=== PATIENT | male | born 1950 | race Caucasian/White ===

== ENCOUNTER 2017-11-06 08:25 | Day surgery (SDC) | payer MEDICARE, BC ==
[~2017-11-06 08:25] MED LIST: ALBU8.5H8 IH; EMPA10TA PO; IRBE300T19 PO; SITA100T11 PO; ZOLP10TA PO
[2017-11-06] MEDS ORDERED: ATEN1TAB3 PO (09:28)
[2017-11-06] MEDS ORDERED: ALBU0.63 NEB (09:28)
[2017-11-06] MEDS ORDERED: IRBE300T19 PO (09:28)
[2017-11-06] MEDS ORDERED: [UNRECOGNIZED DRUG - CODE] (09:28)
[2017-11-06] MEDS ORDERED: METF500T4 PO (09:28)
[2017-11-06] MEDS ORDERED: EMPA10TA PO (09:28)
[2017-11-06] MEDS ORDERED: GABA-532 PO (09:28)
[2017-11-06] MEDS ORDERED: LIDOcaine 2% 5ml jelly ONE (09:54)
== END 2017-11-06 11:03 | disposition home or self-care (01) ==
LOC: WOUND CARE 08:25
PROVIDERS: ATTEND Surgery
DX: E11.622 Type 2 diabetes mellitus with other skin ulcer (principal); L97.821 Non-pressure chronic ulcer of other part of left lower leg limited to breakdown of skin; L97.811 Non-pressure chronic ulcer of other part of right lower leg limited to breakdown of skin; L97.221 Non-pressure chronic ulcer of left calf limited to breakdown of skin; I87.2 Venous insufficiency (chronic) (peripheral); I11.0 Hypertensive heart disease with heart failure; I50.33 Acute on chronic diastolic (congestive) heart failure; E78.5 Hyperlipidemia, unspecified; E66.01 Morbid (severe) obesity due to excess calories; G47.33 Obstructive sleep apnea (adult) (pediatric); E11.42 Type 2 diabetes mellitus with diabetic polyneuropathy; M19.90 Unspecified osteoarthritis, unspecified site; F10.20 Alcohol dependence, uncomplicated; F17.210 Nicotine dependence, cigarettes, uncomplicated; Z68.37 Body mass index [BMI] 37.0-37.9, adult; Z79.899 Other long term (current) drug therapy
CPT/HCPCS: 36415; 36416; 82948; 83036; 97597; A6021; A6223; A6441

== ENCOUNTER 2017-11-10 09:16 | Day surgery (SDC) | payer MEDICARE, BC ==
[~2017-11-10 09:16] MED LIST changes: +ALBU0.63 NEB; +ATEN1TAB3 PO; +GABA-532 PO; +METF500T4 PO; +[UNRECOGNIZED DRUG - CODE]
[2017-11-10] MEDS ORDERED: LIDOcaine 2% 5ml jelly ONE (10:37)
== END 2017-11-10 11:28 | disposition home or self-care (01) ==
LOC: WOUND CARE 09:16
PROVIDERS: ATTEND Surgery
DX: E11.622 Type 2 diabetes mellitus with other skin ulcer (principal); L97.821 Non-pressure chronic ulcer of other part of left lower leg limited to breakdown of skin; L97.811 Non-pressure chronic ulcer of other part of right lower leg limited to breakdown of skin; L97.221 Non-pressure chronic ulcer of left calf limited to breakdown of skin; I87.2 Venous insufficiency (chronic) (peripheral); I11.0 Hypertensive heart disease with heart failure; I50.33 Acute on chronic diastolic (congestive) heart failure; E78.5 Hyperlipidemia, unspecified; E66.01 Morbid (severe) obesity due to excess calories; G47.33 Obstructive sleep apnea (adult) (pediatric); E11.42 Type 2 diabetes mellitus with diabetic polyneuropathy; M19.90 Unspecified osteoarthritis, unspecified site; F10.20 Alcohol dependence, uncomplicated; F17.210 Nicotine dependence, cigarettes, uncomplicated; Z68.37 Body mass index [BMI] 37.0-37.9, adult; Z79.899 Other long term (current) drug therapy
CPT/HCPCS: 36416; 82948; 93970; 97597; A6021; A6206; A6441

== ENCOUNTER 2017-11-17 09:20 | Day surgery (SDC) | payer MEDICARE, BC ==
[2017-11-17] MEDS ORDERED: LIDOcaine 2% 5ml jelly ONE (09:55)
== END 2017-11-17 10:50 | disposition home or self-care (01) ==
LOC: WOUND CARE 09:20
PROVIDERS: ATTEND Surgery
DX: E11.622 Type 2 diabetes mellitus with other skin ulcer (principal); L97.821 Non-pressure chronic ulcer of other part of left lower leg limited to breakdown of skin; L97.811 Non-pressure chronic ulcer of other part of right lower leg limited to breakdown of skin; L97.221 Non-pressure chronic ulcer of left calf limited to breakdown of skin; I87.2 Venous insufficiency (chronic) (peripheral); I11.0 Hypertensive heart disease with heart failure; I50.33 Acute on chronic diastolic (congestive) heart failure; E78.5 Hyperlipidemia, unspecified; E66.01 Morbid (severe) obesity due to excess calories; G47.33 Obstructive sleep apnea (adult) (pediatric); E11.42 Type 2 diabetes mellitus with diabetic polyneuropathy; M19.90 Unspecified osteoarthritis, unspecified site; F10.20 Alcohol dependence, uncomplicated; F17.210 Nicotine dependence, cigarettes, uncomplicated; Z68.37 Body mass index [BMI] 37.0-37.9, adult; Z79.899 Other long term (current) drug therapy
CPT/HCPCS: 36416; 82948; 97597; A6021; A6206; A6441

== ENCOUNTER 2017-11-24 09:17 | Day surgery (SDC) | payer MEDICARE, BC ==
[2017-11-24] MEDS ORDERED: LIDOcaine 2% 5ml jelly ONE (09:36)
== END 2017-11-24 10:35 | disposition home or self-care (01) ==
LOC: WOUND CARE 09:17
PROVIDERS: ATTEND Surgery
DX: E11.622 Type 2 diabetes mellitus with other skin ulcer (principal); L97.221 Non-pressure chronic ulcer of left calf limited to breakdown of skin; L97.821 Non-pressure chronic ulcer of other part of left lower leg limited to breakdown of skin; L97.811 Non-pressure chronic ulcer of other part of right lower leg limited to breakdown of skin; I87.2 Venous insufficiency (chronic) (peripheral); I11.0 Hypertensive heart disease with heart failure; I50.33 Acute on chronic diastolic (congestive) heart failure; E78.5 Hyperlipidemia, unspecified; E66.01 Morbid (severe) obesity due to excess calories; G47.33 Obstructive sleep apnea (adult) (pediatric); E11.42 Type 2 diabetes mellitus with diabetic polyneuropathy; M19.90 Unspecified osteoarthritis, unspecified site; F10.20 Alcohol dependence, uncomplicated; F17.210 Nicotine dependence, cigarettes, uncomplicated; Z68.37 Body mass index [BMI] 37.0-37.9, adult; Z79.899 Other long term (current) drug therapy
CPT/HCPCS: 29581; 36416; 82948; 97597; A6021; A6206; A6441

== ENCOUNTER 2017-12-01 09:15 | Outpatient (CLI) | payer MEDICARE, BC | END 2017-12-01 11:15 | disposition home or self-care (01) | LOC: WOUND CARE 09:15 → EDSTATUS 09:30 → WOUND CARE 11:15 | PROVIDERS: ATTEND Surgery | DX: E11.622 Type 2 diabetes mellitus with other skin ulcer (principal); L97.821 Non-pressure chronic ulcer of other part of left lower leg limited to breakdown of skin; L97.811 Non-pressure chronic ulcer of other part of right lower leg limited to breakdown of skin; L97.221 Non-pressure chronic ulcer of left calf limited to breakdown of skin; I83.022 Varicose veins of left lower extremity with ulcer of calf; I83.218 Varicose veins of right lower extremity with both ulcer of other part of lower extremity and inflammation; I11.0 Hypertensive heart disease with heart failure; I50.33 Acute on chronic diastolic (congestive) heart failure; E66.01 Morbid (severe) obesity due to excess calories; G47.33 Obstructive sleep apnea (adult) (pediatric); E11.42 Type 2 diabetes mellitus with diabetic polyneuropathy; M19.90 Unspecified osteoarthritis, unspecified site; F17.210 Nicotine dependence, cigarettes, uncomplicated; F10.20 Alcohol dependence, uncomplicated; Z68.37 Body mass index [BMI] 37.0-37.9, adult; Z79.899 Other long term (current) drug therapy | CPT/HCPCS: 29581; 36416; 82948; A6441 ==

== ENCOUNTER 2017-12-15 08:26 | Outpatient (CLI) | payer MEDICARE, BC ==
[2017-12-15] MEDS ORDERED: silver sulfadiazine cream 50gm TP ONE (10:43)
== END 2017-12-15 11:30 | disposition home or self-care (01) ==
LOC: WOUND CARE 08:26 → EDSTATUS 09:30 → WOUND CARE 11:30
PROVIDERS: ATTEND Surgery
DX: E11.622 Type 2 diabetes mellitus with other skin ulcer (principal); L97.821 Non-pressure chronic ulcer of other part of left lower leg limited to breakdown of skin; L97.811 Non-pressure chronic ulcer of other part of right lower leg limited to breakdown of skin; L97.221 Non-pressure chronic ulcer of left calf limited to breakdown of skin; I83.022 Varicose veins of left lower extremity with ulcer of calf; I83.218 Varicose veins of right lower extremity with both ulcer of other part of lower extremity and inflammation; I11.0 Hypertensive heart disease with heart failure; I50.33 Acute on chronic diastolic (congestive) heart failure; E66.01 Morbid (severe) obesity due to excess calories; G47.33 Obstructive sleep apnea (adult) (pediatric); E11.42 Type 2 diabetes mellitus with diabetic polyneuropathy; M19.90 Unspecified osteoarthritis, unspecified site; F17.210 Nicotine dependence, cigarettes, uncomplicated; F10.20 Alcohol dependence, uncomplicated; Z68.37 Body mass index [BMI] 37.0-37.9, adult; Z79.899 Other long term (current) drug therapy
CPT/HCPCS: 29581; 36416; 82948; A6441

== ENCOUNTER 2017-12-26 08:30 | Outpatient (CLI) | payer MEDICARE, BC | END 2017-12-26 10:07 | disposition home or self-care (01) | LOC: WOUND CARE 08:30 → EDSTATUS 08:30 → WOUND CARE 10:07 | PROVIDERS: ATTEND Surgery | DX: E11.622 Type 2 diabetes mellitus with other skin ulcer (principal); L97.821 Non-pressure chronic ulcer of other part of left lower leg limited to breakdown of skin; L97.811 Non-pressure chronic ulcer of other part of right lower leg limited to breakdown of skin; L97.221 Non-pressure chronic ulcer of left calf limited to breakdown of skin; I83.022 Varicose veins of left lower extremity with ulcer of calf; I83.218 Varicose veins of right lower extremity with both ulcer of other part of lower extremity and inflammation; I11.0 Hypertensive heart disease with heart failure; I50.33 Acute on chronic diastolic (congestive) heart failure; E78.5 Hyperlipidemia, unspecified; E66.01 Morbid (severe) obesity due to excess calories; G47.33 Obstructive sleep apnea (adult) (pediatric); E11.42 Type 2 diabetes mellitus with diabetic polyneuropathy; M19.90 Unspecified osteoarthritis, unspecified site; F17.210 Nicotine dependence, cigarettes, uncomplicated; F10.20 Alcohol dependence, uncomplicated; Z68.37 Body mass index [BMI] 37.0-37.9, adult; Z79.899 Other long term (current) drug therapy | CPT/HCPCS: 36416; 82948; 99215 ==

== ENCOUNTER 2018-11-11 16:06 | Emergency (ER) | payer MEDICARE, BC ==
[~2018-11-11] VITALS: Ht 172.7 cm; Wt 113.6 kg
[~2018-11-11 16:06] MED LIST changes: +METF-436 PO; -METF500T4 PO
[2018-11-11 17:09] LABS: BASOPHILS # (AUTO) 0.1 X10'3 (0-0.2); BASOPHILS % (AUTO) 0.6 % (0-1); EOSINOPHILS # (AUTO) 0.1 X10'3 (0-0.9); EOSINOPHILS % (AUTO) 1.1 % (0-6); HEMATOCRIT 52.3 % (42.0-52.0); HEMOGLOBIN 17.6 g/dl (14.0-17.9); LYMPHOCYTES # (AUTO) 1.7 X10'3 (1.1-4.8); LYMPHOCYTES % (AUTO) 13.4 % (21-51); MEAN CORPUSCULAR HEMOGLOBIN 33.7 PG (27.0-31.0); MEAN CORPUSCULAR HGB CONC 33.7 g/dL (33.0-36.5); MEAN CORPUSCULAR VOLUME 99.8 FL (78-98); MONOCYTES # (AUTO) 1.1 X10'3 (0-0.9); MONOCYTES % (AUTO) 8.7 % (2-12); NEUTROPHILS # (AUTO) 9.5 X10'3 (1.8-7.7); NEUTROPHILS % (AUTO) 76.2 % (42-75); PLATELET COUNT 212 X10'3 (140-440); RED BLOOD COUNT 5.24 X10'6 (4.70-6.10); RED CELL DISTRIBUTION WIDTH 15.4 % (11.5-14.5); WHITE BLOOD COUNT 12.5 X10'3 (4.5-11.0)
[2018-11-11 17:41] LABS: ALANINE AMINOTRANSFERASE 24 U/L (12-78); ALBUMIN 3.3 G/DL (3.4-5.0); ALBUMIN/GLOBULIN RATIO 0.9 (1.1-1.5); ALKALINE PHOSPHATASE 95 IU/L (46-116); ANION GAP 8 (8-16); ASPARTATE AMINO TRANSFERASE 17 U/L (10-37); BILIRUBIN,TOTAL 0.4 MG/DL (0.1-1.0); BLOOD UREA NITROGEN 25 MG/DL (7-18); BUN/CREATININE RATIO 27.8 (5.4-32.0); CALCIUM 9.1 MG/DL (8.5-10.1); CHLORIDE 103 MMOL/L (99-107); GLUCOSE 141 MG/DL (70-104); LIPASE 188 U/L (73-393); POTASSIUM 4.7 MMOL/L (3.5-5.1); SODIUM 140 MMOL/L (135-145); TOTAL CARBON DIOXIDE 29.5 MMOL/L (24-32); TOTAL PROTEIN 6.9 G/DL (6.4-8.2); eGFR 84 ML/MIN
[2018-11-11 17:54] LABS: CLARITY,URINE SLIGHTLY CLOUDY (Clear); COLOR,URINE YELLOW (Yellow); GLUCOSE, URINE 250 mg/dl (Neg); KETONES,URINE NEGATIVE (Neg); LEUKOCYTE ESTERASE ,URINE LARGE (Neg); NITRITES, URINE NEGATIVE (Neg); OCCULT BLOOD,URINE TRACE-INTACT (Neg); PROTEIN,URINE NEGATIVE (Neg); UROBILINOGEN,URINE 0.2 E.U/dL (0.2-1.0)
[2018-11-11 17:57] LABS: UA COLLECTION TYPE CLN CATCH MIDSTREAM
[2018-11-11 18:00] VITALS: BP 135/71
[2018-11-11 18:01] LABS: MUCUS STRANDS FEW /LPF (Neg); SQUAMOUS EPITHELIAL CELL,UR MODERATE /LPF (FEW)
[2018-11-11 18:02] LABS: WBC,URINE 30-50 /HPF (0-4)
[2018-11-11 18:04] LABS: YEAST MANY /HPF (NEGATIVE)
[2018-11-11 18:05] LABS: BACTERIA,URINE FEW /HPF (Neg); WBC CLUMPS,URINE FEW /HPF (NEGATIVE)
[2018-11-11 18:20] LABS: OCCULT BLOOD STOOL POSITIVE (Neg)
[2018-11-11] MEDS ORDERED: amox tr/potassium clavulanate 875/125mg TAB PO ONE (18:45)
[2018-11-11] MEDS ORDERED: AMOX-422 PO (19:02)
== END 2018-11-11 19:28 | disposition home or self-care (01) ==
LOC: ER 16:07
DX: K62.5 Hemorrhage of anus and rectum (principal); N39.0 Urinary tract infection, site not specified; J44.9 Chronic obstructive pulmonary disease, unspecified; E11.9 Type 2 diabetes mellitus without complications; I87.8 Other specified disorders of veins; Z79.2 Long term (current) use of antibiotics; Z79.899 Other long term (current) drug therapy
CPT/HCPCS: 36415; 74176; 80053; 81001; 82272; 83690; 84145; 85025; 87088; 99284

== ENCOUNTER 2019-05-03 09:02 | Emergency (ER) | payer MEDICARE, BC ==
[~2019-05-03] VITALS: Ht 175.3 cm; Wt 104.0 kg
[~2019-05-03 09:02] MED LIST changes: -ALBU0.63 NEB; +ALOG25TA2 PO; -ATEN1TAB3 PO; +ATEN25TA PO; +EPHE1TAB PO; +FLO0.4C PO; +FLUC200T9; +FOLI1TAB16 PO; +FURO40TA4 PO; +HYDR25TA4 PO; +IPRA3AMP9 IH; +IRBE150T51 PO; -IRBE300T19 PO; +LOSA25TA96 PO; -METF-436 PO; +METO50TA7 PO; +NITR100C11 PO; +ROSU10TA2 PO; -SITA100T11 PO; +TERB250T4 PO; -ZOLP10TA PO; +ZOLP10TA5 PO; -[UNRECOGNIZED DRUG - CODE]
[2019-05-03] MEDS ORDERED: orphenadrine citrate 60mg/2ml inj. IM ONE (10:35)
[2019-05-03 10:51] VITALS: BP 148/86
[2019-05-03] MEDS ORDERED: FLUC100T8 PO (22:55)
[2019-05-03] MEDS ORDERED: TIOT4MIS3 INH (22:55)
[2019-05-03] MEDS ORDERED: CEPH-572 PO (22:55)
== END 2019-05-03 10:53 | disposition home or self-care (01) ==
LOC: ER 09:03
DX: S39.012A Strain of muscle, fascia and tendon of lower back, initial encounter (principal); E78.00 Pure hypercholesterolemia, unspecified; J44.9 Chronic obstructive pulmonary disease, unspecified; I13.0 Hypertensive heart and chronic kidney disease with heart failure and stage 1 through stage 4 chronic kidney disease, or unspecified chronic kidney disease; E11.22 Type 2 diabetes mellitus with diabetic chronic kidney disease; N18.9 Chronic kidney disease, unspecified; I50.9 Heart failure, unspecified; F17.200 Nicotine dependence, unspecified, uncomplicated; Z95.0 Presence of cardiac pacemaker; Z79.899 Other long term (current) drug therapy; W18.39XA Other fall on same level, initial encounter; Y93.89 Activity, other specified; Y92.89 Other specified places as the place of occurrence of the external cause; Y99.8 Other external cause status
CPT/HCPCS: 96372; 99284; J2360

== ENCOUNTER 2019-05-03 19:46 | Emergency (ER) | payer MEDICARE, BC ==
[~2019-05-03] VITALS: Ht 175.3 cm; Wt 230.0 kg
--- NOTE | 2019-05-03 20:41 | NUR ---
PT GOING TO CT
[2019-05-03 21:18] LABS: BASOPHILS # (AUTO) 0.1 X10'3 (0-0.2); BASOPHILS % (AUTO) 0.9 % (0-1); EOSINOPHILS # (AUTO) 0.1 X10'3 (0-0.9); EOSINOPHILS % (AUTO) 1.5 % (0-6); HEMATOCRIT 40.1 % (42.0-52.0); HEMOGLOBIN 13.5 g/dl (14.0-17.9); LYMPHOCYTES # (AUTO) 1.6 X10'3 (1.1-4.8); LYMPHOCYTES % (AUTO) 17.7 % (21-51); MEAN CORPUSCULAR HEMOGLOBIN 31.1 PG (27.0-31.0); MEAN CORPUSCULAR HGB CONC 33.7 g/dL (33.0-36.5); MEAN CORPUSCULAR VOLUME 92.4 FL (78-98); MEAN PLATELET VOLUME 8.2 FL (7.4-10.4); MONOCYTES # (AUTO) 0.9 X10'3 (0-0.9); MONOCYTES % (AUTO) 10.2 % (2-12); NEUTROPHILS # (AUTO) 6.3 X10'3 (1.8-7.7); NEUTROPHILS % (AUTO) 69.7 % (42-75); PLATELET COUNT 351 X10'3 (140-440); RED BLOOD COUNT 4.34 X10'6 (4.70-6.10)
--- NOTE | 2019-05-03 21:20 | NUR ---
PT SBA X 2 MOD ASSIST AND HE IS VERY WOBBLY. NOT ABLE TO VOID. HE DOESN'T EVEN FEEL HE NEEDS TO VOID. BLOOD FROM PENIS CLEANSED. PT GOWNED. LINEN CHANGE. FAMILY AT BS. DR YODER TALKING WITH FAMILY.
[2019-05-03 21:30] LABS: LIPASE 164 U/L (73-393)
[2019-05-03 21:41] LABS: ALBUMIN 2.7 G/DL (3.4-5.0); ALBUMIN/GLOBULIN RATIO 0.6 (1.1-1.5); ANION GAP 10 (8-16); BILIRUBIN,TOTAL 0.4 MG/DL (0.1-1.0); BLOOD UREA NITROGEN 25 MG/DL (7-18); BUN/CREATININE RATIO 20.2 (5.4-32.0); CALCIUM 9.6 MG/DL (8.5-10.1); CHLORIDE 103 MMOL/L (99-107); CREATININE 1.24 MG/DL (0.60-1.10); GLUCOSE 121 MG/DL (70-104); POTASSIUM 3.4 MMOL/L (3.5-5.1); SODIUM 139 MMOL/L (135-145); TOTAL CARBON DIOXIDE 26.3 MMOL/L (24-32); TOTAL PROTEIN 7.1 G/DL (6.4-8.2); eGFR 58 ML/MIN
[2019-05-03 21:42] LABS: ALANINE AMINOTRANSFERASE 26 U/L (12-78); ALKALINE PHOSPHATASE 104 IU/L (46-116); ASPARTATE AMINO TRANSFERASE 22 U/L (10-37)
--- NOTE | 2019-05-03 22:35 | NUR ---
IRRIGATED MAJOR WITH 1L OF STERILE WATER TO CLEAR TO SALMON COLORED URINE. SEVERAL CLOTS IRRIGATED OUT.
--- NOTE | 2019-05-03 22:36 | NUR ---
CALLED [facility] AND WAS TOLD NOT AT [facility] AND WOULD CALL WITH ETA SOON THEY CAN. @ 22:27
[2019-05-03] MEDS ORDERED: FLUC100T8 PO (22:55)
[2019-05-03] MEDS ORDERED: CEPH-572 PO (22:55)
[2019-05-03] MEDS ORDERED: TIOT4MIS3 INH (22:55)
--- NOTE | 2019-05-03 23:04 | NUR ---
CALLED [facility] FOR ETA AT 23:05. THEY ADVISED ME STILL NOT AT [facility] AND NO ETA
[2019-05-03 23:39] VITALS: BP 118/48
[2019-05-03 23:50] LABS: CLARITY,URINE CLOUDY (Clear); COLOR,URINE RED (Yellow)
[2019-05-03 23:55] LABS: UA COLLECTION TYPE FOLEY CATH
[2019-05-03 23:58] LABS: BACTERIA,URINE FEW /HPF (Neg); RBC,URINE TNTC /HPF (0-2); SQUAMOUS EPITHELIAL CELL,UR FEW /LPF (FEW)
--- NOTE | 2019-05-04 00:25 | NUR ---
pt repositioned. [facility] called to inform me that they will be here shortly to get him. Pt updated. Shanna NAVARRETE notified.
== END 2019-05-04 00:39 | disposition short-term general hospital (02) ==
LOC: ER 19:46
DX: S32.048A Other fracture of fourth lumbar vertebra, initial encounter for closed fracture (principal); R31.9 Hematuria, unspecified; G93.40 Encephalopathy, unspecified; R32 Unspecified urinary incontinence; E11.42 Type 2 diabetes mellitus with diabetic polyneuropathy; I13.0 Hypertensive heart and chronic kidney disease with heart failure and stage 1 through stage 4 chronic kidney disease, or unspecified chronic kidney disease; E11.22 Type 2 diabetes mellitus with diabetic chronic kidney disease; N18.9 Chronic kidney disease, unspecified; I50.9 Heart failure, unspecified; J44.9 Chronic obstructive pulmonary disease, unspecified; E78.00 Pure hypercholesterolemia, unspecified; G31.89 Other specified degenerative diseases of nervous system; Z95.0 Presence of cardiac pacemaker; Z79.899 Other long term (current) drug therapy; W19.XXXA Unspecified fall, initial encounter; Y93.89 Activity, other specified; Y92.89 Other specified places as the place of occurrence of the external cause; Y99.9 Unspecified external cause status
CPT/HCPCS: 36415; 51700; 70450; 74176; 80053; 81001; 83690; 85025; 87088; 99285

== ENCOUNTER 2021-08-09 12:18 | Emergency (ER) | payer MEDICARE, BC ==
[~2021-08-09 12:18] MED LIST changes: +ALBU8.5H17 IH; -ALBU8.5H8 IH; -ALOG25TA2 PO; +CEPH-572 PO; -EMPA10TA PO; -EPHE1TAB PO; +FLUC100T8 PO; -FLUC200T9; -FURO40TA4 PO; -GABA-532 PO; -NITR100C11 PO; -TERB250T4 PO; +TIOT4MIS3 INH; -ZOLP10TA5 PO
== END 2021-08-09 17:22 | disposition left against medical advice (07) ==
LOC: ER 12:19
DX: Z53.21 Procedure and treatment not carried out due to patient leaving prior to being seen by health care provider (principal)

== ENCOUNTER 2021-08-10 09:46 | Emergency (ER) | payer OTHER, MEDICARE, BC ==
[~2021-08-10] VITALS: Ht 175.3 cm; Wt 102.3 kg
[2021-08-10 10:08] VITALS: BP 174/98
== END 2021-08-10 10:52 | disposition home or self-care (01) ==
LOC: ER 09:47
DX: S81.832A Puncture wound without foreign body, left lower leg, initial encounter (principal); I73.9 Peripheral vascular disease, unspecified; I13.0 Hypertensive heart and chronic kidney disease with heart failure and stage 1 through stage 4 chronic kidney disease, or unspecified chronic kidney disease; E11.22 Type 2 diabetes mellitus with diabetic chronic kidney disease; N18.9 Chronic kidney disease, unspecified; J44.9 Chronic obstructive pulmonary disease, unspecified; E11.42 Type 2 diabetes mellitus with diabetic polyneuropathy; Z87.440 Personal history of urinary (tract) infections; Z95.0 Presence of cardiac pacemaker; Z72.89 Other problems related to lifestyle; Z79.2 Long term (current) use of antibiotics; Z79.899 Other long term (current) drug therapy; X58.XXXA Exposure to other specified factors, initial encounter; Y93.89 Activity, other specified; Y92.89 Other specified places as the place of occurrence of the external cause; Y99.8 Other external cause status
CPT/HCPCS: 99281